=== PATIENT | male | born 2000 | race Caucasian/White ===

== ENCOUNTER → 2022-11-02 10:22 | Outpatient (CLI) | payer OTHER, SELFPAY ==
--- NOTE | 2022-11-02 | DI.US.S_ITS ---
ULTRASOUND OF RIGHT BREAST: 11/02/2022 CLINICAL: Palpable right breast lump. Comparison is made to exam dated: 11/02/2022 mammogram - [facility]. Color flow ultrasound of the right breast was performed on the areas of interest. Ferrer scale images of the real-time examination were reviewed. There is a 1.5 cm x 2.1 cm x 2.9 cm oval mass in the right breast at 7 o'clock anterior depth. This oval mass is isoechoic with posterior acoustic enhancement. This correlates as palpated but was not seen on the prior mammogram. IMPRESSION: BENIGN There is no sonographic evidence of malignancy. The 1.5 cm x 2.1 cm x 2.9 cm oval mass in the right breast is consistent with a lipoma and is benign. This exam was interpreted at Station ID: [id number]. Electronically Signed By: Edith Ceja M.D. lk/:11/02/2022 11:31:53 letter sent: Clinical Evaluation Ultrasound BI-RADS: 2 Benign
--- NOTE | 2022-11-02 | DI.MG.S_ITS ---
MALE BILATERAL DIGITAL DIAGNOSTIC MAMMOGRAM 3D/2D: 11/02/2022 CLINICAL: Cystic structure Right breast. No prior exams were available for comparison. No significant masses, calcifications, or other findings are seen in either breast. IMPRESSION: INCOMPLETE: NEEDS ADDITIONAL IMAGING EVALUATION There is no mammographic abnormality seen in the right breast to correspond with the palpable abnormality, however, targeted ultrasound of the right breast is recommended and will be performed immediately following this exam. This exam was interpreted at Station ID: [id number]. NOTE: For mammograms, a report in lay terms will be sent to the patient. Approximately 15% of breast malignancies will not be visualized mammographically. In the management of a palpable breast mass, a negative mammogram must not discourage biopsy of a clinically suspicious lesion. Electronically Signed By: Edith Ceja M.D. lk/:11/02/2022 10:58:24 ACR BI-RADS Category 0: Incomplete [id number]
== END ==
PROVIDERS: PCP Naturopath; Referring Provider Naturopath; Visit Provider Naturopath
DX: N63.13 Unspecified lump in the right breast, lower outer quadrant (principal); R92.2 Inconclusive mammogram
CPT/HCPCS: 76642; 77066; G0279